=== PATIENT | female | born 1990 | race Caucasian/White ===

== ENCOUNTER 2016-11-08 21:47 | Emergency (ER) | payer BC ==
--- NOTE | 2016-11-08 21:51 | EDM.PDOC ---
ED HPI GENERAL MEDICAL PROBLEM - General Chief Complaint: General Stated Complaint: TOOTH PAIN Time Seen by Provider: 11/08/16 21:51 Source of Information: Reports: Patient - History of Present Illness INITIAL COMMENTS - FREE TEXT/NARRATIVE: HISTORY AND PHYSICAL: History of present illness: [] Patient is a rear molar right upper is scheduled for extraction on [address] Fernández Or ever area has become swollen and painful consistent with early dental abscess no pointing of the films for drainage No fever nausea vomiting chills sweats no distress Review of systems: As per history of present illness and below otherwise all systems reviewed and negative. Past medical history: As per history of present illness and as reviewed below otherwise noncontributory. Surgical history: As per history of present illness and as reviewed below otherwise noncontributory. Social history: No reported history of drug or alcohol abuse. Family history: As per history of present illness and as reviewed below otherwise noncontributory. Physical exam: HEENT: Atraumatic, normocephalic, pupils reactive, negative for conjunctival pallor or scleral icterus, mucous membranes moist, throat clear, neck supple, nontender, trachea midline. Poor dentition noted as per history of present illness Lungs: Clear to auscultation, breath sounds equal bilaterally, chest nontender. Heart: S1S2, regular, negative for clicks, rubs, or JVD. Abdomen: Soft, nondistended, nontender. Negative for masses or hepatosplenomegaly. Negative for costovertebral tenderness. Pelvis: Stable nontender. Genitourinary: Deferred. Rectal: Deferred. Extremities: Atraumatic, negative for cords or calf pain. Neurovascular unremarkable. Neuro: Awake, alert, oriented. Cranial nerves II through XII unremarkable. Cerebellum unremarkable. Motor and sensory unremarkable throughout. Exam nonfocal. Diagnostics: [] Therapeutics: [] 1 g Rocephin IM Augmentin 875 by mouth twice a day #20 no refill [place] #10 [facility] meds prescription Followup with dentist as soon as possible Impression: [] Dental abscess Dental caries Definitive disposition and diagnosis as appropriate pending reevaluation and review of above. 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) Other OB/BYN History: cstc off vaginal wall Musculoskeletal History: Reports: None Neurological History: Reports: None Psychiatric History: Reports: None Endocrine/Metabolic History: Reports: None Hematologic History: Reports: None Immunologic History: Reports: None Oncologic (Cancer) History: Reports: None Dermatologic History: Reports: None - Infectious Disease History Infectious Disease History: Reports: None - Past Surgical History Head Surgeries/Procedures: Reports: None HEENT Surgical History: Reports: None Cardiovascular Surgical History: Reports: None Female Surgical History: Reports: None Social & Family History - Family History Family Medical History: Noncontributory - Tobacco Use Smoking Status *Q: Never Smoker Second Hand Smoke Exposure: No - Caffeine Use Caffeine Use: Reports: Soda, Tea - Recreational Drug Use Recreational Drug Use: No ED ROS GENERAL - Review of Systems Review Of Systems: ROS reveals no pertinent complaints other than HPI. ED EXAM, GENERAL - Physical Exam Exam: See Below Course - Vital Signs Last Recorded V/S: Last Vital Signs Temp 36.3 C 11/08/16 21:52 Pulse 89 11/08/16 21:52 Resp 16 11/08/16 21:52 BP 131/81 11/08/16 21:52 Pulse Ox 97 11/08/16 21:52 - Orders/Labs/Meds Orders: Active Orders 24 hr Category Date Time Status cefTRIAXone [Rocephin] 1,000 mg Med 11/08/16 22:00 Ordered Lidocaine 1% [Xylocaine-MPF 1%] 4 ml IM ONETIME Departure - Departure Time of Disposition: 22:01 Disposition: Home, Self-Care 01 Condition: good Clinical Impression: Dental abscess - Discharge Information Forms: ED Department Discharge Additional Instructions: Medication as prescribed Return if symptoms persist or worsen Followup with Dr. Fernández as scheduled on the for extraction or speak with Dr. Fernández and possibly they may move your appointment forward if possible The following information is given to patients seen in the emergency department who are being discharged to home. This information is to outline your options for follow-up care. We provide all patients seen in our emergency department with a follow-up referral. The need for follow-up, as well as the timing and circumstances, are variable depending upon the specifics of your emergency department visit. If you don't have a primary care physician on staff, we will provide you with a referral. We always advise you to contact your personal physician following an emergency department visit to inform them of the circumstance of the visit and for follow-up with them and/or the need for any referrals to a consulting specialist. The emergency department will also refer you to a specialist when appropriate. This referral assures that you have the opportunity for follow-up care with a specialist. All of these measure are taken in an effort to provide you with optimal care, which includes your follow-up. Under all circumstances we always encourage you to contact your private physician who remains a resource for coordinating your care. When calling for follow-up care, please make the office aware that this follow-up is from your recent emergency room visit. If for any reason you are refused follow-up, please contact the [facility] emergency department at and asked to speak to the emergency department charge nurse. - My Orders Last 24 Hours: My Active Orders 11/08/16 22:00 cefTRIAXone [Rocephin] 1,000 mg Lidocaine 1% [Xylocaine-MPF 1%] 4 ml IM ONETIME - Assessment/Plan Last 24 Hours: My Active Orders 11/08/16 22:00 cefTRIAXone [Rocephin] 1,000 mg Lidocaine 1% [Xylocaine-MPF 1%] 4 ml IM ONETIME
[2016-11-08] MEDS ORDERED: cefTRIAXone 1,000 MG in Lidocaine 1% 4 ML IM ONE (22:00)
[2016-11-08 22:27] VITALS: BP 134/84
== END 2016-11-08 22:25 | disposition home or self-care (01) ==
LOC: MW.ED 21:47
DX: K04.7 Periapical abscess without sinus (principal); K02.9 Dental caries, unspecified; Z79.899 Other long term (current) drug therapy
CPT/HCPCS: 96372; 99282; J0696; 99283

== ENCOUNTER 2017-04-21 15:06 | Observation (INO) | payer BC ==
[2017-04-21] MEDS ORDERED: Sodium Chloride 0.9% 2.5 ML Syringe FLUSH PRN (15:08)
[2017-04-21] MEDS ORDERED: Sodium Chloride 0.9% 10 ML Syringe FLUSH PRN (15:08)
[2017-04-21] MEDS: Dextrose 5%-Lactated Ringers 1,000 ML IV SCH ×2 (15:34→22:49)
[2017-04-21] MEDS: Acetaminophen/oxyCODONE 325-5 MG Tab PO PRN ×2 (15:44→20:18)
[2017-04-21] MEDS ORDERED: cefTRIAXone 2 GM in Premix Bag 1 BAG IV ONE (16:00)
[2017-04-21] MEDS ORDERED: Metoclopramide 10 MG/2 ML SDV IVPUSH PRN (21:33)
[2017-04-22] MEDS: Dextrose 5%-Lactated Ringers 1,000 ML IV SCH (09:29)
--- NOTE | 2017-04-22 12:37 | US ---
EXAMINATION: Renal and bladder ultrasound HISTORY: Blood in urine COMPARISON: 04/20/2017 TECHNIQUE: Grayscale, color Doppler, and spectral Doppler images obtained of the kidneys and bladder. FINDINGS: The right kidney measures at least 10.8 cm and the left kidney measures at least 10.9 cm po le-to-pole without evidence of hydronephrosis. The renal cortical echotexture appears normal. There i s normal color Doppler flow bilaterally. No renal masses or perinephric fluid collections. The urinar y bladder appears normal. Bilateral urine jets noted. No post void residual. IMPRESSION: 1. Unremarkable renal ultrasound.
[2017-04-22] MEDS ORDERED: cefTRIAXone 1 GM in Premix Bag 1 BAG IV SCH (16:00)
[2017-04-22 16:02] VITALS: BP 94/45
--- NOTE | 2017-04-22 18:01 | PCM.PN ---
- General Info Date of Service: 04/22/17 Admission Dx/Problem (Free Text): 26 yo @ 21w2d admitted for left flank pain possible pyelonephritis vs renal stones. patient had sonogram done today that was unremarkable. Urine culture done in previous admission is negative - will repeat. WBC count from 14 to 10. Patient seen this morning she says she feels better. asked for pain medication at 8pm last night. She has recieved 1 dose of rocephin Functional Status: Reports: Pain Controlled, Tolerating Diet, Ambulating - Review of Systems General: Reports: No Symptoms HEENT: Reports: No Symptoms Pulmonary: Reports: No Symptoms Cardiovascular: Reports: No Symptoms Gastrointestinal: Reports: No Symptoms - Patient Data Vitals - Most Recent: Last Vital Signs Temp 36.1 C 04/22/17 16:01 Pulse 79 04/22/17 16:01 Resp 22 H 04/22/17 16:01 BP 94/45 L 04/22/17 16:01 Pulse Ox 96 04/22/17 16:01 Weight - Most Recent: 83.37 kg I&O - Last 24 Hours: Intake & Output 04/22/17 04/22/17 04/22/17 06:59 14:59 22:59 Intake Total 1100 386 Output Total 1500 1650 Balance -400 -1264 Med Orders - Current: Current Medications Ceftriaxone Sodium/Dextrose 1 (gm/ Premix) 50 mls @ 100 mls/hr IV Q24H DARRYN Last Admin: 04/22/17 15:32 Dose: 100 mls/hr Dextrose/Lactated Ringer's (Dextrose 5%-Lactated Ringers) 1,000 mls @ 150 mls/ hr IV ASDIRECTED DARRYN Last Admin: 04/22/17 09:29 Dose: 150 mls/hr Metoclopramide HCl (Reglan) 10 mg IVPUSH Q6H PRN PRN Reason: Nausea Last Admin: 04/21/17 23:03 Dose: 10 mg Oxycodone/Acetaminophen (Percocet 325-5 Mg) 2 tab PO Q4H PRN PRN Reason: pain Last Admin: 04/21/17 20:18 Dose: 2 tab Sodium Chloride (Saline Flush) 10 ml FLUSH ASDIRECTED PRN PRN Reason: Keep Vein Open Sodium Chloride (Saline Flush) 2.5 ml FLUSH ASDIRECTED PRN PRN Reason: Keep Vein Open Discontinued Medications Ceftriaxone Sodium/Dextrose 2 (gm/ Premix) 50 mls @ 100 mls/hr IV ONETIME ONE Stop: 04/21/17 16:29 Last Admin: 04/21/17 15:35 Dose: 100 mls/hr - Exam General: Alert HEENT: Pupils Equal Lungs: Clear to Auscultation Cardiovascular: Regular Rate, Regular Rhythm GI/Abdominal Exam: Normal Bowel Sounds Back Exam: Normal Inspection Extremities: Normal Inspection - Problem List & Annotations (1) Pyelonephritis SNOMED Code(s): 81890969 Code(s): N12 - TUBULO-INTERSTITIAL NEPHRITIS, NOT SPCF ACUTE OR CHRONIC Status: Acute Current Visit: Yes - Problem List Review Problem List Initiated/Reviewed/Updated: Yes - My Orders Last 24 Hours: My Active Orders 04/21/17 21:33 Metoclopramide [Reglan] 10 mg IVPUSH Q6H PRN 04/22/17 09:37 CULTURE URINE [RM] Routine 04/22/17 16:00 cefTRIAXone [Rocephin in Dextrose,Iso-Osm 1 GM/50 ML] 1 gm Premix Bag 1 bag IV Q24H - Assessment Assessment:: 26 yo @ 21w2d with left flank pain r/o pyelonephritis vs left kidney stone - Plan Plan:: Possible discharge home today if pain controlled Continue IV hydration Continue antibiotics
== END 2017-04-22 19:30 | disposition home or self-care (01) ==
LOC: MW.MS 15:06
PROVIDERS: ADMIT Obstetrics & Gynecology; ATTEND Obstetrics & Gynecology
DX: R10.9 Unspecified abdominal pain (principal)
CPT/HCPCS: 36415; 76775; 85027; 86850; 86900; 86901; 87086; A9270; J0696; J2765; J7042; 96361; 96365; 96375; G0378

== ENCOUNTER 2017-08-25 06:49 | Inpatient (IN) | payer BC ==
[2017-08-25] MEDS ORDERED: Sodium Chloride 0.9% 10 ML Syringe FLUSH PRN (07:46)
[2017-08-25] MEDS ORDERED: Sodium Chloride 0.9% 2.5 ML Syringe FLUSH PRN (07:46)
[2017-08-25] MEDS ORDERED: ceFAZolin 2 GM in Premix Bag 1 BAG IV ONE (07:46)
[2017-08-25] MEDS ORDERED: Citric Acid/Sodium Citrate Solution 30 ML Cup PO SCH (08:00)
[2017-08-25] MEDS ORDERED: Lactated Ringers 1,000 ML IV SCH ×2 (08:00→10:00)
[2017-08-25] MEDS ORDERED: Oxytocin/0.9 % Sodium Chloride 30 UNIT/500 ML BAG IV SCH (08:00)
[2017-08-25] MEDS ORDERED: Ondansetron 4 MG/2 ML SDV ONE (08:30)
[2017-08-25] MEDS ORDERED: fentaNYL 100 MCG/2 ML SDV ONE (08:35)
[2017-08-25] MEDS ORDERED: Oxytocin 10 Units/1 ML SDV ONE (08:36)
[2017-08-25] MEDS ORDERED: Midazolam 1 MG/ML 2 ML SDV ONE (08:38)
--- NOTE | 2017-08-25 08:53 | PCM.PREANE ---
Preanesthetic Assessment - Anesthesia/Transfusion/Family Hx Anesthesia History: Prior Anesthesia Without Reaction Transfusion History: No Prior Transfusion(s) - Review of Systems General: No Symptoms Pulmonary: No Symptoms Cardiovascular: No Symptoms Gastrointestinal: No Symptoms Neurological: No Symptoms Other: Reports: None - Physical Assessment NPO Status Date: 08/25/17 NPO Status Time: 06:00 Height: 5 ft 1 in Weight: 88.451 kg ASA Class: 2E Mental Status: Alert & Oriented x3 Airway Class: Mallampati = 2 Dentition: Reports: Normal Dentition ROM/Head Extension: Full Lungs: Clear to Auscultation, Normal Respiratory Effort Cardiovascular: Regular Rate, Regular Rhythm - Lab Values: Laboratory Last Values WBC 13.84 K/uL (4.0-11.0) H 08/25/17 08:08 RBC 4.68 M/uL (4.30-5.90) 08/25/17 08:08 Hgb 13.8 g/dL (12.0-16.0) 08/25/17 08:08 Hct 41.3 % (36.0-46.0) 08/25/17 08:08 MCV 88.2 fL (80.0-98.0) 08/25/17 08:08 MCH 29.5 pg (27.0-32.0) 08/25/17 08:08 MCHC 33.4 g/dL (31.0-37.0) 08/25/17 08:08 RDW Std Deviation 45.6 fl (28.0-62.0) 08/25/17 08:08 RDW Coeff of Pardeep 14 % (11.0-15.0) 08/25/17 08:08 Plt Count 225 K/uL (150-400) 08/25/17 08:08 MPV 10.90 fL (7.40-12.00) 08/25/17 08:08 Nucleated RBC % 0.0 /100WBC 08/25/17 08:08 Nucleated RBCs # 0 K/uL 08/25/17 08:08 Membrane Rupture POSITIVE 08/25/17 07:03 Blood Type O POSITIVE 08/25/17 08:08 Antibody Screen NEGATIVE 08/25/17 08:08 - Allergies Allergies/Adverse Reactions: Allergies Allergy/AdvReac Type Severity Reaction Status Date / Time No Known Allergies Allergy Verified 11/08/16 21:52 - Acknowledgements Anesthesia Type Planned: Spinal (with duramorph) Pt an Appropriate Candidate for the Planned Anesthesia: Yes Alternatives and Risks of Anesthesia Discussed w Pt/Guardian: Yes Pt/Guardian Understands and Agrees with Anesthesia Plan: Yes PreAnesthesia Questionnaire - Past Health History Medical/Surgical History: Denies Medical/Surgical History HEENT History: Reports: None Cardiovascular History: Reports: None Respiratory History: Reports: None Gastrointestinal History: Reports: GERD Genitourinary History: Reports: Other (See Below) Other Genitourinary History: cystc vaginal wall removed 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: , Other (See Below) : 1 Para: 0 LMP (Approximate): Other OB/BYN History: cstc off vaginal wall Musculoskeletal History: Reports: None Neurological History: Reports: None Psychiatric History: Reports: None Endocrine/Metabolic History: Reports: None Hematologic History: Reports: None Immunologic History: Reports: None Oncologic (Cancer) History: Reports: None Dermatologic History: Reports: None - Infectious Disease History Infectious Disease History: Reports: Chicken Pox, Herpes - Past Surgical History Head Surgeries/Procedures: Reports: None HEENT Surgical History: Reports: None Cardiovascular Surgical History: Reports: None Female Surgical History: Reports: None - SUBSTANCE USE Smoking Status *Q: Never Smoker Second Hand Smoke Exposure: No Recreational Drug Use History: No - HOME MEDS Home Medications: Home Meds Acyclovir 800 mg PO TID PRN 04/21/17 [History] Cyanocobalamin/FA/Pyridoxine [B Complex-Folic Acid] 1 each PO ASDIRECTED [History] Doxylamine Succinate [Unisom] 25 mg PO BEDTIME 04/21/17 [History] Wle884/FA/Omega3/Dha/Fish Oil [ Gummies] 1 each PO ASDIRECTED 04/21/17 [ History] oxyCODONE HCl/Acetaminophen [Percocet 5-325 mg Tablet] 2 tab PO Q4HR PRN #10 tablet 04/22/17 [Rx] valACYclovir [Valtrex] 500 mg PO BID PRN 04/22/17 [History] - CURRENT (IN HOUSE) MEDS Current Meds: Current Medications Citric Acid/Sodium Citrate (Bicitra Solution) 30 ml PO .ONCE DARRYN Oxytocin/Sodium Chloride (Oxytocin 30 Unit/500 Ml-Ns) 30 unit in 500 mls @ 250 mls/hr IV TITRATE DARRYN Lactated Ringer's (Ringers, Lactated) 1,000 mls @ 500 mls/hr IV .BOLUS DARRYN Last Admin: 08/25/17 08:21 Dose: 500 mls/hr Sodium Chloride (Saline Flush) 10 ml FLUSH ASDIRECTED PRN PRN Reason: Keep Vein Open Sodium Chloride (Saline Flush) 2.5 ml FLUSH ASDIRECTED PRN PRN Reason: Keep Vein Open Discontinued Medications Fentanyl (Sublimaze) Confirm Administered Dose 100 mcg .ROUTE .STK-MED ONE Stop: 08/25/17 08:36 Cefazolin Sodium/Dextrose 2 gm (/ Premix) 50 mls @ 100 mls/hr IV ONETIME ONE Stop: 08/25/17 08:15 Midazolam HCl (Versed 1 Mg/Ml) Confirm Administered Dose 2 mg .ROUTE .STK-MED ONE Stop: 08/25/17 08:39 Ondansetron HCl (Zofran) Confirm Administered Dose 4 mg .ROUTE .STK-MED ONE Stop: 08/25/17 08:31 Oxytocin (Pitocin) Confirm Administered Dose 20 unit .ROUTE .STK-MED ONE Stop: 08/25/17 08:37
[2017-08-25] MEDS ORDERED: Acetaminophen/oxyCODONE 325-5 MG Tab PO PRN ×2 (08:54→09:50)
[2017-08-25] MEDS ORDERED: fentaNYL 100 MCG/2 ML SDV IVPUSH PRN (08:54)
[2017-08-25] MEDS ORDERED: Nalbuphine 10 MG/1 ML Vial IVPUSH PRN (08:54)
[2017-08-25] MEDS ORDERED: Morphine PF 1 MG/ML Amp ONE (08:54)
[2017-08-25] MEDS ORDERED: Ondansetron 4 MG/2 ML SDV IV PRN (09:50)
[2017-08-25] MEDS ORDERED: Bisacodyl 10 MG Supp RECTAL PRN (09:50)
[2017-08-25] MEDS ORDERED: Lanolin 100% Cream 7 GM Tube TOP PRN (09:50)
[2017-08-25] MEDS: Ketorolac 30 MG/ML SDV IVPUSH SCH ×3 (09:58→21:57)
[2017-08-25] MEDS ORDERED: Measles, Mumps & Rubella Vaccine 0.5 ML SDV SUBCUT ONE (10:02)
--- NOTE | 2017-08-25 10:25 | PCM.OPNOTE ---
- General Post-Op/Procedure Note Date of Surgery/Procedure: 08/25/17 Operative Procedure(s): section Findings: Male infant, Wt 3150grams, Apgars 6 and 8. Normal uterus, ovaries and tubes. Grossly normal placenta with 3 vessel cord. Pre Op Diagnosis: 1) 39.2 weeks. 2) Spontaneous active labor with SROM. 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
[2017-08-25] MEDS: diphenhydrAMINE 50 MG/ML SDV IVPUSH PRN ×2 (10:40→17:03)
--- NOTE | 2017-08-25 11:03 | PCM.POSTAN ---
POST ANESTHESIA ASSESSMENT - MENTAL STATUS Mental Status: Alert, Oriented - RESPIRATORY Respiratory Status: Respiratory Rate WNL, Airway Patent, O2 Saturation Stable - CARDIOVASCULAR CV Status: Pulse Rate WNL, Blood Pressure Stable - GASTROINTESTINAL GI Status: No Symptoms - POST OP HYDRATION Hydration Status: Adequate & Stable
--- NOTE | 2017-08-25 13:35 | PCM48HPAN ---
Post Anesthesia Note - EVALUATION WITHIN 48HRS OF ANESTHETIC Vital Signs in Normal Range: Yes Patient Participated in Evaluation: Yes Respiratory Function Stable: Yes Airway Patent: Yes Cardiovascular Function Stable: Yes Hydration Status Stable: Yes Pain Control Satisfactory: Yes Nausea and Vomiting Control Satisfactory: Yes Mental Status Recovered: Yes Resp Rate: 16 - COMMENTS/OBSERVATIONS Free Text/Narrative:: Pt states she has used both benadryl and nubain for pruritis and states neither has helped. VSS. No anesthesia complications.
[2017-08-25] MEDS: Docusate Sodium 100 MG Cap PO SCH (21:57)
[2017-08-26] MEDS: Ketorolac 30 MG/ML SDV IVPUSH SCH ×2 (04:11→10:25)
--- NOTE | 2017-08-26 08:17 | PCM.PNPP ---
<Renée Mcneil - Last Filed: 08/26/17 08:14> - General Info Date of Service: 08/26/17 Functional Status: Reports: Pain Controlled, Tolerating Diet, Ambulating, Urinating - Review of Systems General: Denies: Fever, Weakness, Fatigue Pulmonary: Denies: Shortness of Breath, Pleuritic Chest Pain, Cough Cardiovascular: Denies: Chest Pain, Palpitations, Dyspnea on Exertion Gastrointestinal: Denies: Abdominal Pain Genitourinary: Denies: Dysuria - General Info Date of Service: 08/26/17 - Patient Data Vital Signs - Most Recent: Last Vital Signs Temp 36.7 C 08/26/17 04:00 Pulse 86 08/26/17 04:00 Resp 16 08/26/17 08:00 BP 92/53 L 08/26/17 04:00 Pulse Ox 99 08/26/17 08:00 Weight - Most Recent: 88.451 kg I&O - Last 24 Hours: Intake & Output 08/25/17 08/26/17 08/26/17 22:59 06:59 14:59 Output Total 1050 300 Balance -1050 -300 Lab Results - Last 24 Hours: Laboratory Results - last 24 hr 08/25/17 08/25/17 08/26/17 Range/Units 08:08 08:08 05:57 WBC 13.84 H (4.0-11.0) K/uL RBC 4.68 (4.30-5.90) M/uL Hgb 13.8 10.7 L (12.0-16.0) g/dL Hct 41.3 32.8 L (36.0-46.0) % MCV 88.2 (80.0-98.0) fL MCH 29.5 (27.0-32.0) pg MCHC 33.4 (31.0-37.0) g/dL RDW Std Deviation 45.6 (28.0-62.0) fl RDW Coeff of Pardeep 14 (11.0-15.0) % Plt Count 225 (150-400) K/uL MPV 10.90 (7.40-12.00) fL Nucleated RBC % 0.0 /100WBC Nucleated RBCs # 0 K/uL Blood Type O POSITIVE Antibody Screen NEGATIVE Med Orders - Current: Current Medications Bisacodyl (Dulcolax) 10 mg RECTAL .ONCE PRN PRN Reason: Constipation Diphenhydramine HCl (Benadryl) 25 mg IVPUSH Q6H PRN PRN Reason: Itching or Nausea Last Admin: 08/25/17 17:03 Dose: 25 mg Docusate Sodium (Colace) 100 mg PO BID [facility] Last Admin: 08/25/17 21:57 Dose: 100 mg Emollient Ointment (Lansinoh Hpa) 0 gm TOP ASDIRECTED PRN PRN Reason: Sore Nipples Fentanyl (Sublimaze) 50 mcg IVPUSH Q5M PRN PRN Reason: Pain (severe 7-10) Stop: 08/26/17 08:54 Lactated Ringer's (Ringers, Lactated) 1,000 mls @ 125 mls/hr IV ASDIRECTED [facility] Ibuprofen (Motrin) 800 mg PO Q8H PRN PRN Reason: mild pain or fever Ketorolac Tromethamine (Toradol) 30 mg IVPUSH Q6H [facility] Stop: 08/26/17 10:01 Last Admin: 08/26/17 04:11 Dose: 30 mg Nalbuphine HCl (Nubain) 2.5 mg IVPUSH Q3H PRN PRN Reason: Pruritis Stop: 08/26/17 08:54 Last Admin: 08/25/17 11:44 Dose: 2.5 mg Ondansetron HCl (Zofran) 4 mg IV Q4H PRN PRN Reason: Nausea/Vomiting Oxycodone/Acetaminophen (Percocet 325-5 Mg) 1 tab PO ONETIME PRN PRN Reason: Pain (moderate 4-6) Oxycodone/Acetaminophen (Percocet 325-5 Mg) 1 tab PO Q4H PRN PRN Reason: Pain (moderate 4-6) Oxycodone/Acetaminophen (Percocet 325-5 Mg) 2 tab PO Q4H PRN PRN Reason: Pain (moderate 4-6) Discontinued Medications Citric Acid/Sodium Citrate (Bicitra Solution) 30 ml PO .ONCE [facility] Fentanyl (Sublimaze) Confirm Administered Dose 100 mcg .ROUTE .STK-MED ONE Stop: 08/25/17 08:36 Cefazolin Sodium/Dextrose 2 gm (/ Premix) 50 mls @ 100 mls/hr IV ONETIME ONE Stop: 08/25/17 08:15 Last Admin: 08/25/17 19:54 Dose: Not Given Oxytocin/Sodium Chloride (Oxytocin 30 Unit/500 Ml-Ns) 30 unit in 500 mls @ 250 mls/hr IV TITRATE [facility] Lactated Ringer's (Ringers, Lactated) 1,000 mls @ 500 mls/hr IV .BOLUS D[facility] Last Admin: 08/25/17 08:21 Dose: 500 mls/hr Measles/Mumps/Rubella Vaccine Live (M-M-R Ii Vaccine) 0.5 ml SUBCUT .ONCE ONE Stop: 08/25/17 10:03 Midazolam HCl (Versed 1 Mg/Ml) Confirm Administered Dose 2 mg .ROUTE .STK-MED ONE Stop: 08/25/17 08:39 Morphine Sulfate (Duramorph Pf) Confirm Administered Dose 1 mg .ROUTE .STK-MED ONE Stop: 08/25/17 08:55 Ondansetron HCl (Zofran) Confirm Administered Dose 4 mg .ROUTE .STK-MED ONE Stop: 08/25/17 08:31 Oxytocin (Pitocin) Confirm Administered Dose 20 unit .ROUTE .STK-MED ONE Stop: 08/25/17 08:37 Sodium Chloride (Saline Flush) 10 ml FLUSH ASDIRECTED PRN PRN Reason: Keep Vein Open Sodium Chloride (Saline Flush) 2.5 ml FLUSH ASDIRECTED PRN PRN Reason: Keep Vein Open - Interaction Infant Disposition, : [place] in Room with Family Infant Feeding: Attempted ; Nursed Fair/Poor, Difficulty with Latch -on Support Person: Significant Other - Recovery Exam Fundal Tone: Firm Fundal Level: At Umbilicus Fundal Placement: Midline Lochia Amount: Scant Lochia Color: Rubra/Red Perineum Description: Intact, Minimal Bruising/Swelling Episiotomy/Laceration: None Bladder Status: Indwelling Catheter in Place Urinary Elimination: Indwelling Catheter - Exam General: Alert, Oriented Neck: Supple Lungs: Clear to Auscultation Cardiovascular: Regular Rate, Regular Rhythm GI/Abdominal Exam: Normal Bowel Sounds, Soft Extremities: Normal Inspection, Normal Range of Motion, Pedal Edema (trace) - Problem List & Annotations (1) delivery delivered SNOMED Code(s): 875582368 Code(s): O82 - ENCOUNTER FOR DELIVERY WITHOUT INDICATION Status: Acute Current Visit: Yes - Problem List Review Problem List Initiated/Reviewed/Updated: Yes - Assessment Assessment:: POD #1 s/p PLTCS. Minimal pain and lochia. Work on breast feeding today. Encouraged patient to ambulate halls. Anticipate discharge home tomorrow. - Plan Plan:: Continue routine post-op cares. Anticipate discharge home tomorrow. <Mehnaz Thomas - Last Filed: 08/26/17 08:19> - Patient Data Vital Signs - Most Recent: Last Vital Signs Temp 36.7 C 08/26/17 04:00 Pulse 86 08/26/17 04:00 Resp 16 08/26/17 08:00 BP 92/53 L 08/26/17 04:00 Pulse Ox 99 08/26/17 08:00 I&O - Last 24 Hours: Intake & Output 08/25/17 08/26/17 08/26/17 22:59 06:59 14:59 Output Total 1050 300 Balance -1050 -300 Lab Results - Last 24 Hours: Laboratory Results - last 24 hr 08/25/17 08/25/17 08/26/17 Range/Units 08:08 08:08 05:57 WBC 13.84 H (4.0-11.0) K/uL RBC 4.68 (4.30-5.90) M/uL Hgb 13.8 10.7 L (12.0-16.0) g/dL Hct 41.3 32.8 L (36.0-46.0) % MCV 88.2 (80.0-98.0) fL MCH 29.5 (27.0-32.0) pg MCHC 33.4 (31.0-37.0) g/dL RDW Std Deviation 45.6 (28.0-62.0) fl RDW Coeff of Pardeep 14 (11.0-15.0) % Plt Count 225 (150-400) K/uL MPV 10.90 (7.40-12.00) fL Nucleated RBC % 0.0 /100WBC Nucleated RBCs # 0 K/uL Blood Type O POSITIVE Antibody Screen NEGATIVE Med Orders - Current: Current Medications Bisacodyl (Dulcolax) 10 mg RECTAL .ONCE PRN PRN Reason: Constipation Diphenhydramine HCl (Benadryl) 25 mg IVPUSH Q6H PRN PRN Reason: Itching or Nausea Last Admin: 08/25/17 17:03 Dose: 25 mg Docusate Sodium (Colace) 100 mg PO BID [facility] Last Admin: 08/25/17 21:57 Dose: 100 mg Emollient Ointment (Lansinoh Hpa) 0 gm TOP ASDIRECTED PRN PRN Reason: Sore Nipples Fentanyl (Sublimaze) 50 mcg IVPUSH Q5M PRN PRN Reason: Pain (severe 7-10) Stop: 08/26/17 08:54 Lactated Ringer's (Ringers, Lactated) 1,000 mls @ 125 mls/hr IV ASDIRECTED [facility] Ibuprofen (Motrin) 800 mg PO Q8H PRN PRN Reason: mild pain or fever Ketorolac Tromethamine (Toradol) 30 mg IVPUSH Q6H [facility] Stop: 08/26/17 10:01 Last Admin: 08/26/17 04:11 Dose: 30 mg Nalbuphine HCl (Nubain) 2.5 mg IVPUSH Q3H PRN PRN Reason: Pruritis Stop: 08/26/17 08:54 Last Admin: 08/25/17 11:44 Dose: 2.5 mg Ondansetron HCl (Zofran) 4 mg IV Q4H PRN PRN Reason: Nausea/Vomiting Oxycodone/Acetaminophen (Percocet 325-5 Mg) 1 tab PO ONETIME PRN PRN Reason: Pain (moderate 4-6) Oxycodone/Acetaminophen (Percocet 325-5 Mg) 1 tab PO Q4H PRN PRN Reason: Pain (moderate 4-6) Oxycodone/Acetaminophen (Percocet 325-5 Mg) 2 tab PO Q4H PRN PRN Reason: Pain (moderate 4-6) Discontinued Medications Citric Acid/Sodium Citrate (Bicitra Solution) 30 ml PO .ONCE [facility] Fentanyl (Sublimaze) Confirm Administered Dose 100 mcg .ROUTE .STK-MED ONE Stop: 08/25/17 08:36 Cefazolin Sodium/Dextrose 2 gm (/ Premix) 50 mls @ 100 mls/hr IV ONETIME ONE Stop: 08/25/17 08:15 Last Admin: 08/25/17 19:54 Dose: Not Given Oxytocin/Sodium Chloride (Oxytocin 30 Unit/500 Ml-Ns) 30 unit in 500 mls @ 250 mls/hr IV TITRATE [facility] Lactated Ringer's (Ringers, Lactated) 1,000 mls @ 500 mls/hr IV .BOLUS DARRYN Last Admin: 08/25/17 08:21 Dose: 500 mls/hr Measles/Mumps/Rubella Vaccine Live (M-M-R Ii Vaccine) 0.5 ml SUBCUT .ONCE ONE Stop: 08/25/17 10:03 Midazolam HCl (Versed 1 Mg/Ml) Confirm Administered Dose 2 mg .ROUTE .STK-MED ONE Stop: 08/25/17 08:39 Morphine Sulfate (Duramorph Pf) Confirm Administered Dose 1 mg .ROUTE .STK-MED ONE Stop: 08/25/17 08:55 Ondansetron HCl (Zofran) Confirm Administered Dose 4 mg .ROUTE .STK-MED ONE Stop: 08/25/17 08:31 Oxytocin (Pitocin) Confirm Administered Dose 20 unit .ROUTE .STK-MED ONE Stop: 08/25/17 08:37 Sodium Chloride (Saline Flush) 10 ml FLUSH ASDIRECTED PRN PRN Reason: Keep Vein Open Sodium Chloride (Saline Flush) 2.5 ml FLUSH ASDIRECTED PRN PRN Reason: Keep Vein Open - Plan Plan:: Patient seen and examined--agree with plan
[2017-08-26] MEDS: Docusate Sodium 100 MG Cap PO SCH (10:24)
--- NOTE | 2017-08-26 12:51 | OR ---
SURGEON: Ramandeep Vega MD DATE OF PROCEDURE: 08/25/2017 PREOPERATIVE DIAGNOSES: 1. Term intrauterine at 39 weeks and 2 days. 2. Spontaneous active labor with SROM . 3. History of HSV-2 4. Elective section POSTOPERATIVE DIAGNOSES: 1. Term intrauterine at 39 weeks and 2 days. 2. Spontaneous active labor with SROM. 3. History of HSV-2 4. Elective section. 5. Delivered. PROCEDURE: Primary low-transverse section via Pfannenstiel. ANESTHESIA: Spinal. ESTIMATED BLOOD LOSS: 600 mL. IV FLUIDS: 1500 mL of crystalloid. URINE OUTPUT: 120 mL clear at the end of the procedure. COMPLICATIONS: None. CONDITION: Stable to recovery room. FINDINGS: Male in cephalic presentation, delivered in right occipital transverse position. Clear amniotic fluid. No nuchal cord. Weight 3150 g, scores 6 and 8 at 1 and 5 minutes respectively. Grossly normal uterus, tubes, and ovaries. Grossly normal placenta with 3-vessel cord. INDICATION: The patient is a 27-year-old primigravida who presented labor and delivery this morning at 39 weeks and 2 days with a history of leakage of clear fluid since 5:30 a.m. On admission, she was confirmed to be grossly ruptured and was 6 cm dilated. 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 She reports that she has never had an outbreak but given the fact that she is unwilling to accept the small risk of a possible HSV-2 infection in the she had opted for an elective section. On examination with bright light, no herpetic lesions were seen on the external genitalia or in the vagina and she was 8 cm, 100% effaced, station +1 on VE. Category 1 tracing, heart rate of 130s, jer every 2 to 3 minutes. The patient is adamant to progress with section. Procedure was explained and consent obtained. PROCEDURE IN DETAIL: The patient was taken to the operating room, where spinal anesthesia was performed and found to be adequate.She was then prepped and draped in a normal sterile fashion in a dorsosupine position with a leftward tilt. Ancef 2 g was given. Appropriate time-out was held. SCDs were in place. Pfannenstiel skin incision was then made with the scalpel and carried through to the underlying layer of fascia with the Bovie.The fascia was scored in the midline and extended laterally with the Bovie. The superior aspect of the fascial incision was grasped with Robe clamps, elevated and the rectus muscles were dissected off. Attention turned to the inferior aspect of the incision, which in similar fashion was grasped, tented up with Robe clamps, and the rectus muscle was dissected off with the Armas scissors. The rectus muscle was then in the midline until the parietal peritoneum was reached and the parietal peritoneum was entered bluntly and was then extended laterally by stretching. A self-retaining Abhijit - O was then placed into the abdominal cavity.The vesicouterine peritoneum was identified, picked up , entered sharply with the Metzenbaum scissors and a bladder flap was created digitally. The lower uterine segment was then incised transversely and the incision was extended upwards and downwards bluntly. The infant's head was then delivered out of the pelvis and was delivered atraumatically followed by the shoulders and the rest of the baby. The cord was double clamped and cut and the was handed over to the awaiting sign fabricator, Dr. Khoury. Cord blood and gas samples were obtained. The placenta was delivered spontaneously by massage. The uterus was cleared of all clot and debris and the uterine incision was then closed in 2 layers using 0 Vicryl sutures, the first layer was closed in a running locked fashion and a second imbricating layer was performed to obtain excellent hemostasis. One figure-of- eight hemostatic stitch was placed in the lower uterus segment obtained better hemostasis. The paracolic gutters were then cleared of all clots and debris and copious irrigation was performed. The Abhijit -O was then removed from the abdominal cavity. The edges of the parietal peritoneum were identified and closed with 2-0 Vicryl suture in a running fashion.The muscle was reapproximated with interrupted stitches of 2-0 Vicryl. The subfascial layer was found to be hemostatic. The fascia was then reapproximated with 0 Vicryl in a running fashion. The subcuticular layer was made hemostatic with electrocautery. The subcuticular layer was then approximated with 3-0 plain suture. The skin was closed using subcuticular stitches of 4-0 Monocryl suture. The patient tolerated the procedure well. Sponge, instrument, and needle counts were correct at the end of the procedure. The patient was taken to the recovery in a stable condition. The baby was taken to the nursery in a stable condition. GAYLA / JULIANE /[id number] MTDD
[2017-08-26] MEDS: Ibuprofen 800 MG Tab PO PRN (19:29)
[2017-08-26] MEDS: Acetaminophen/oxyCODONE 325-5 MG Tab PO PRN (19:30)
[2017-08-27] MEDS: Acetaminophen/oxyCODONE 325-5 MG Tab PO PRN ×2 (00:11→03:56)
[2017-08-27] MEDS: Docusate Sodium 100 MG Cap PO SCH ×2 (03:56→09:03)
[2017-08-27] MEDS: Ibuprofen 800 MG Tab PO PRN (03:57)
[2017-08-27 08:22] VITALS: BP 117/80
--- NOTE | 2017-08-27 09:38 | PCM.PNPP ---
- General Info Date of Service: 08/27/17 Subjective Update: Patient is feeling well--she is ambulating, voiding, lochia is scant. Notes her pain is well controlled. She would like to go home today - Review of Systems General: Denies: Fever Pulmonary: Denies: Shortness of Breath Cardiovascular: Denies: Chest Pain, Palpitations, Lightheadedness Gastrointestinal: Reports: Flatus. Denies: Nausea, Vomiting Genitourinary: Denies: Flank Pain Neurological: Denies: Headache Psychiatric: Reports: No Symptoms - General Info Date of Service: 08/27/17 - Patient Data Vital Signs - Most Recent: Last Vital Signs Temp 36.7 C 08/27/17 08:21 Pulse 117 H 08/27/17 04:00 Resp 17 08/27/17 08:21 BP 117/80 08/27/17 08:21 Pulse Ox 99 08/27/17 08:21 Weight - Most Recent: 88.451 kg Med Orders - Current: Current Medications Bisacodyl (Dulcolax) 10 mg RECTAL .ONCE PRN PRN Reason: Constipation Last Admin: 08/26/17 20:46 Dose: 10 mg Diphenhydramine HCl (Benadryl) 25 mg IVPUSH Q6H PRN PRN Reason: Itching or Nausea Last Admin: 08/25/17 17:03 Dose: 25 mg Docusate Sodium (Colace) 100 mg PO BID [facility] Last Admin: 08/27/17 09:03 Dose: 100 mg Emollient Ointment (Lansinoh Hpa) 0 gm TOP ASDIRECTED PRN PRN Reason: Sore Nipples Lactated Ringer's (Ringers, Lactated) 1,000 mls @ 125 mls/hr IV ASDIRECTED [facility] Ibuprofen (Motrin) 800 mg PO Q8H PRN PRN Reason: mild pain or fever Last Admin: 08/27/17 03:57 Dose: 800 mg Ondansetron HCl (Zofran) 4 mg IV Q4H PRN PRN Reason: Nausea/Vomiting Oxycodone/Acetaminophen (Percocet 325-5 Mg) 1 tab PO ONETIME PRN PRN Reason: Pain (moderate 4-6) Last Admin: 08/27/17 09:03 Dose: 1 tab Oxycodone/Acetaminophen (Percocet 325-5 Mg) 1 tab PO Q4H PRN PRN Reason: Pain (moderate 4-6) Last Admin: 08/27/17 03:56 Dose: 1 tab Oxycodone/Acetaminophen (Percocet 325-5 Mg) 2 tab PO Q4H PRN PRN Reason: Pain (moderate 4-6) Discontinued Medications Citric Acid/Sodium Citrate (Bicitra Solution) 30 ml PO .ONCE [facility] Fentanyl (Sublimaze) Confirm Administered Dose 100 mcg .ROUTE .STK-MED ONE Stop: 08/25/17 08:36 Fentanyl (Sublimaze) 50 mcg IVPUSH Q5M PRN PRN Reason: Pain (severe 7-10) Stop: 08/26/17 08:54 Cefazolin Sodium/Dextrose 2 gm (/ Premix) 50 mls @ 100 mls/hr IV ONETIME ONE Stop: 08/25/17 08:15 Last Admin: 08/25/17 19:54 Dose: Not Given Oxytocin/Sodium Chloride (Oxytocin 30 Unit/500 Ml-Ns) 30 unit in 500 mls @ 250 mls/hr IV TITRATE [facility] Lactated Ringer's (Ringers, Lactated) 1,000 mls @ 500 mls/hr IV .BOLUS DARRYN Last Admin: 08/25/17 08:21 Dose: 500 mls/hr Ketorolac Tromethamine (Toradol) 30 mg IVPUSH Q6H [facility] Stop: 08/26/17 10:01 Last Admin: 08/26/17 10:25 Dose: 30 mg Measles/Mumps/Rubella Vaccine Live (M-M-R Ii Vaccine) 0.5 ml SUBCUT .ONCE ONE Stop: 08/25/17 10:03 Midazolam HCl (Versed 1 Mg/Ml) Confirm Administered Dose 2 mg .ROUTE .STK-MED ONE Stop: 08/25/17 08:39 Morphine Sulfate (Duramorph Pf) Confirm Administered Dose 1 mg .ROUTE .STK-MED ONE Stop: 08/25/17 08:55 Nalbuphine HCl (Nubain) 2.5 mg IVPUSH Q3H PRN PRN Reason: Pruritis Stop: 08/26/17 08:54 Last Admin: 08/25/17 11:44 Dose: 2.5 mg Ondansetron HCl (Zofran) Confirm Administered Dose 4 mg .ROUTE .STK-MED ONE Stop: 08/25/17 08:31 Oxytocin (Pitocin) Confirm Administered Dose 20 unit .ROUTE .STK-MED ONE Stop: 08/25/17 08:37 Sodium Chloride (Saline Flush) 10 ml FLUSH ASDIRECTED PRN PRN Reason: Keep Vein Open Sodium Chloride (Saline Flush) 2.5 ml FLUSH ASDIRECTED PRN PRN Reason: Keep Vein Open - Infant Interaction Infant Disposition, : in Room with Family Infant Feeding: Attempted ; Nursed Fair/Poor, Difficulty with Latch -on Support Person: Significant Other - Recovery Exam Fundal Tone: Firm Fundal Level: 1 Fingerbreadths Below Umbilicus Fundal Placement: Midline Lochia Amount: Small Lochia Color: Rubra/Red Perineum Description: Intact, Minimal Bruising/Swelling Episiotomy/Laceration: Approximated Bladder Status: Voiding Urinary Elimination: Voided - Exam General: Alert, Oriented Lungs: Normal Respiratory Effort Cardiovascular: Regular Rate, Regular Rhythm GI/Abdominal Exam: Normal Bowel Sounds, Soft Extremities: Pedal Edema (trace). No: Jeffy's Sign Skin: Warm, Dry, Intact Wound/Incisions: Healing Well, No Drainage. No: Erythema Psy/Mental Status: Alert - Problem List Review Problem List Initiated/Reviewed/Updated: Yes - My Orders Last 24 Hours: My Active Orders 08/27/17 09:34 Ready for Discharge [RC] PER UNIT ROUTINE - Assessment Assessment:: POD #2 s/p PLTCS. - Plan Plan:: Patient to be discharged to home today. Discharge instructions reviewed. Follow up at [facility] 2 and 6 weeks. Infection and bleeding warnings reviewed.
[2017-08-27] MEDS ORDERED: Measles, Mumps & Rubella Vaccine 0.5 ML SDV SUBCUT ONE (10:09)
== END 2017-08-27 10:33 | disposition home or self-care (01) | DRG 540 ==
LOC: MW.OB 06:49 → MW.OBCHECK 06:49 → MW.OB 07:08 → OBSVTOIN 07:46 → MW.OB 18:57
PROVIDERS: ADMIT Obstetrics & Gynecology; ATTEND Obstetrics & Gynecology
PROC: 10D00Z1 Extraction of Products of Conception, Low, Open Approach (ICD-10-PCS; principal; 2017-08-25)
DX: O98.32 Other infections with a predominantly sexual mode of transmission complicating childbirth (principal); A60.00 Herpesviral infection of urogenital system, unspecified; Z37.0 Single live birth; Z3A.39 39 weeks gestation of pregnancy; Z79.899 Other long term (current) drug therapy
CPT/HCPCS: 01961; 36415; 59025; 84112; 85014; 85018; 85027; 86850; 86900; 86901; 90471; 90707; A9270-GY; J1200; J1885; J2250; J2274; J2300; J2405; J2590; J3010; J7120

== ENCOUNTER 2018-12-09 18:17 | Emergency (ER) | payer OTHER ==
[2018-12-09] MEDS ORDERED: Ketorolac 30 MG/ML SDV IVPUSH ONE (18:29)
[2018-12-09] MEDS ORDERED: Ondansetron 4 MG/2 ML SDV IVPUSH ONE (18:29)
[2018-12-09] MEDS ORDERED: Sodium Chloride 0.9% 1,000 ML IV ONE (18:29)
--- NOTE | 2018-12-09 18:32 | EDM.PDOC ---
<Dae Huerta J - Last Filed: 12/09/18 18:30> ED HPI GENERAL MEDICAL PROBLEM - General Chief Complaint: Flank Pain Stated Complaint: BACK PAIN AND NAUSEA Time Seen by Provider: 12/09/18 18:29 - History of Present Illness INITIAL COMMENTS - FREE TEXT/NARRATIVE: HISTORY AND PHYSICAL: History of present illness: Patient's 28-year-old white female presents with concern of acute right flank pain associated nausea she teaches similar episode in the past with urolithiasis she denies fever chills denies trauma denies any chance of denies vaginal discharge Review of systems: As per history of present illness and below otherwise all systems reviewed and negative. Past medical history: As per history of present illness and as reviewed below otherwise noncontributory. Surgical history: As per history of present illness and as reviewed below otherwise noncontributory. Social history: No reported history of drug or alcohol abuse. Family history: As per history of present illness and as reviewed below otherwise noncontributory. Physical exam: HEENT: Atraumatic, normocephalic, pupils reactive, negative for conjunctival pallor or scleral icterus, mucous membranes moist, throat clear, neck supple, nontender, trachea midline. Lungs: Clear to auscultation, breath sounds equal bilaterally, chest nontender. Heart: S1S2, regular, negative for clicks, rubs, or JVD. Abdomen: Soft, nondistended, nontender. Negative for masses or hepatosplenomegaly. Right-sided costovertebral tenderness. Pelvis: Stable nontender. Genitourinary: Deferred. Rectal: Deferred. Extremities: Atraumatic, negative for cords or calf pain. Neurovascular unremarkable. Neuro: Awake, alert, oriented. Cranial nerves II through XII unremarkable. Cerebellum unremarkable. Motor and sensory unremarkable throughout. Exam nonfocal. Diagnostics: CBC CMP UA hCG CT abdomen and pelvis Therapeutics: Saline 1 L bolus and Toradol 30 mg IV Zofran 4 mg IV Impression: #1 acute right flank pain #2 history of urolithiasis Definitive disposition and diagnosis as appropriate pending reevaluation and review of above. - Related Data Allergies Allergy/AdvReac Type Severity Reaction Status Date / Time No Known Allergies Allergy Verified 12/09/18 18:48 Home Meds: Home Meds valACYclovir [Valtrex] 500 mg PO BID PRN 04/22/17 [History] Dextroamphetamine/Amphetamine [Adderall 10 mg Tablet] 1 tab PO DAILY 12/09/18 [ History] Past Medical History - Past Health History Medical/Surgical History: Denies Medical/Surgical History HEENT History: Reports: None Cardiovascular History: Reports: None Respiratory History: Reports: None Gastrointestinal History: Reports: None Genitourinary History: Reports: Other (See Below) Other Genitourinary History: cystc vaginal wall removed OPERATIONS SUPPORT SPECIALIST History: Reports: Other (See Below) Other OPERATIONS SUPPORT SPECIALIST History: cstc off vaginal wall Musculoskeletal History: Reports: None Neurological History: Reports: None Psychiatric History: Reports: None Endocrine/Metabolic History: Reports: None Hematologic History: Reports: None Immunologic History: Reports: None Oncologic (Cancer) History: Reports: None Dermatologic History: Reports: None - Infectious Disease History Infectious Disease History: Reports: Chicken Pox, Herpes - Past Surgical History Head Surgeries/Procedures: Reports: None HEENT Surgical History: Reports: None Cardiovascular Surgical History: Reports: None Female Surgical History: Reports: None Social & Family History - Family History Family Medical History: Noncontributory - Caffeine Use Caffeine Use: Reports: Tea ED ROS GENERAL - Review of Systems Review Of Systems: ROS reveals no pertinent complaints other than HPI. ED EXAM, GENERAL - Physical Exam Exam: See Below (dictation) Course - Vital Signs Last Recorded V/S: Last Vital Signs Temp 97 F 12/09/18 18:33 Pulse 98 12/09/18 20:30 Resp 20 12/09/18 20:30 BP 123/75 12/09/18 20:30 Pulse Ox 98 12/09/18 20:30 - Orders/Labs/Meds Labs: Laboratory Tests 12/09/18 12/09/18 12/09/18 Range/Units 18:30 18:42 18:42 WBC 14.08 H (4.0-11.0) K/uL RBC 5.38 (4.30-5.90) M/uL Hgb 15.8 (12.0-16.0) g/dL Hct 47.3 H (36.0-46.0) % MCV 87.9 (80.0-98.0) fL MCH 29.4 (27.0-32.0) pg MCHC 33.4 (31.0-37.0) g/dL RDW Std Deviation 42.1 (28.0-62.0) fl RDW Coeff of Pardeep 13 (11.0-15.0) % Plt Count 246 (150-400) K/uL MPV 10.80 (7.40-12.00) fL Neut % (Auto) 84.5 H (48.0-80.0) % Lymph % (Auto) 10.2 L (16.0-40.0) % [place] % (Auto) 4.3 (0.0-15.0) % Eos % (Auto) 0.9 (0.0-7.0) % Baso % (Auto) 0.1 (0.0-1.5) % Neut # (Auto) 11.9 H (1.4-5.7) K/uL Lymph # (Auto) 1.4 (0.6-2.4) K/uL [place] # (Auto) 0.6 (0.0-0.8) K/uL Eos # (Auto) 0.1 (0.0-0.7) K/uL Baso # (Auto) 0.0 (0.0-0.1) K/uL Nucleated RBC % 0.0 /100WBC Nucleated RBCs # 0 K/uL Sodium 134 L (136-145) mmol/L Potassium 3.7 (3.5-5.1) mmol/L Chloride 102 (98-107) mmol/L Carbon Dioxide 25.5 (21.0-32.0) mmol/L BUN 9 (7.0-18.0) mg/dL Creatinine 0.8 (0.6-1.0) mg/dL Est Cr Clr Drug Dosing 78.30 mL/min Estimated GFR (MDRD) > 60.0 ml/min Glucose 121 H (74-106) mg/dL Calcium 9.8 (8.5-10.1) mg/dL Total Bilirubin 0.4 (0.2-1.0) mg/dL AST 18 (15-37) IU/L ALT 29 (14-63) IU/L Alkaline Phosphatase 86 (46-116) U/L Total Protein 7.3 (6.4-8.2) g/dL Albumin 4.3 (3.4-5.0) g/dL Globulin 3.0 (2.6-4.0) g/dL Albumin/Globulin Ratio 1.4 (0.9-1.6) HCG, Qual (NEG) Urine Color RED Urine Appearance CLOUDY Urine pH 6.0 (5.0-8.0) Ur Specific [place] >= 1.030 (1.001-1.035) Urine Protein 30 H (NEGATIVE) mg/dL Urine Glucose (UA) NEGATIVE (NEGATIVE) mg/dL Urine Ketones TRACE H (NEGATIVE) mg/dL Urine Occult Blood LARGE H (NEGATIVE) Urine Nitrite NEGATIVE (NEGATIVE) Urine Bilirubin NEGATIVE (NEGATIVE) Urine Urobilinogen 0.2 (<2.0) EU/dL Ur Leukocyte Esterase NEGATIVE (NEGATIVE) Urine RBC TOO NUMEROUS TO CT H (0-2/HPF) Urine WBC 0-1 (0-5/HPF) Ur Epithelial Cells OCCASIONAL (NONE-FEW) Urine Bacteria RARE (NEGATIVE) 12/09/18 Range/Units 18:42 WBC (4.0-11.0) K/uL RBC (4.30-5.90) M/uL Hgb (12.0-16.0) g/dL Hct (36.0-46.0) % MCV (80.0-98.0) fL MCH (27.0-32.0) pg MCHC (31.0-37.0) g/dL RDW Std Deviation (28.0-62.0) fl RDW Coeff of Pardeep (11.0-15.0) % Plt Count (150-400) K/uL MPV (7.40-12.00) fL Neut % (Auto) (48.0-80.0) % Lymph % (Auto) (16.0-40.0) % [place] % (Auto) (0.0-15.0) % Eos % (Auto) (0.0-7.0) % Baso % (Auto) (0.0-1.5) % Neut # (Auto) (1.4-5.7) K/uL Lymph # (Auto) (0.6-2.4) K/uL [place] # (Auto) (0.0-0.8) K/uL Eos # (Auto) (0.0-0.7) K/uL Baso # (Auto) (0.0-0.1) K/uL Nucleated RBC % /100WBC Nucleated RBCs # K/uL Sodium (136-145) mmol/L Potassium (3.5-5.1) mmol/L Chloride (98-107) mmol/L Carbon Dioxide (21.0-32.0) mmol/L BUN (7.0-18.0) mg/dL Creatinine (0.6-1.0) mg/dL Est Cr Clr Drug Dosing mL/min Estimated GFR (MDRD) ml/min Glucose (74-106) mg/dL Calcium (8.5-10.1) mg/dL Total Bilirubin (0.2-1.0) mg/dL AST (15-37) IU/L ALT (14-63) IU/L Alkaline Phosphatase (46-116) U/L Total Protein (6.4-8.2) g/dL Albumin (3.4-5.0) g/dL Globulin (2.6-4.0) g/dL Albumin/Globulin Ratio (0.9-1.6) HCG, Qual NEGATIVE (NEG) Urine Color Urine Appearance Urine pH (5.0-8.0) Ur Specific [place] (1.001-1.035) Urine Protein (NEGATIVE) mg/dL Urine Glucose (UA) (NEGATIVE) mg/dL Urine Ketones (NEGATIVE) mg/dL Urine Occult Blood (NEGATIVE) Urine Nitrite (NEGATIVE) Urine Bilirubin (NEGATIVE) Urine Urobilinogen (<2.0) EU/dL Ur Leukocyte Esterase (NEGATIVE) Urine RBC (0-2/HPF) Urine WBC (0-5/HPF) Ur Epithelial Cells (NONE-FEW) Urine Bacteria (NEGATIVE) Meds: Medications Discontinued Medications Generic Name Dose Route Start Last Admin Trade Name Cordellq PRN Reason Stop Dose Admin Sodium Chloride 1,000 mls @ 999 mls/hr 12/09/18 18:29 12/09/18 18:49 Normal Saline IV 12/09/18 19:29 999 mls/hr STAT ONE Administration Ketorolac Tromethamine 30 mg 12/09/18 18:29 12/09/18 18:51 Toradol IVPUSH 12/09/18 18:30 30 mg ONETIME ONE Administration Methylprednisolone Sodium Succinate 125 mg 12/09/18 20:13 12/09/18 20:29 Solu-Medrol IVPUSH 12/09/18 20:14 125 mg ONETIME ONE Administration Morphine Sulfate 2 mg 12/09/18 20:18 12/09/18 20:29 Morphine IVPUSH 12/09/18 20:19 2 mg ONETIME ONE Administration Ondansetron HCl 4 mg 12/09/18 18:29 12/09/18 18:50 Zofran IVPUSH 12/09/18 18:30 4 mg ONETIME ONE Administration Tamsulosin HCl 0.4 mg 12/09/18 20:13 12/09/18 20:28 Flomax PO 12/09/18 20:14 0.4 mg ONETIME ONE Administration Departure - Departure Disposition: Home, Self-Care 01 Clinical Impression: Ureteral stone - Discharge Information Referrals: Delilah Morales FILLING MACHINE OPERATOR [Primary Care Provider] - Forms: ED Department Discharge Additional Instructions: Medication as prescribed Filter urine, collection equipment provided Return stone to primary care or urology for pathology Follow-up with primary care in 2 weeks [facility] - Primary Care [address] [place] [address] [facility] - Urology [address] [place] [address] The following information is given to patients seen in the emergency department who are being discharged to home. This information is to outline your options for follow-up care. We provide all patients seen in our emergency department with a follow-up referral. The need for follow-up, as well as the timing and circumstances, are variable depending upon the specifics of your emergency department visit. If you don't have a primary care physician on staff, we will provide you with a referral. We always advise you to contact your personal physician following an emergency department visit to inform them of the circumstance of the visit and for follow-up with them and/or the need for any referrals to a consulting specialist. The emergency department will also refer you to a specialist when appropriate. This referral assures that you have the opportunity for follow-up care with a specialist. All of these measure are taken in an effort to provide you with optimal care, which includes your follow-up. Under all circumstances we always encourage you to contact your private physician who remains a resource for coordinating your care. When calling for follow-up care, please make the office aware that this follow-up is from your recent emergency room visit. If for any reason you are refused follow-up, please contact the [facility] emergency department at and asked to speak to the emergency department charge nurse. <Lokesh Jacome - Last Filed: 12/09/18 21:03> ED HPI GENERAL MEDICAL PROBLEM - History of Present Illness INITIAL COMMENTS - FREE TEXT/NARRATIVE: Seen and examined the patient and agree with the above No fever vomiting chills sweats 5 out of 10 pain, currently not rated as tolerable with above treatment. Gen. no acute distress HEENT grossly within normal limits Chest clear CV regular AbdomeSoft nontender nondistended bowel sounds all 4 quadrants Extremities full range of motion strength 5 out of 5 no edema RUBBER ATTACHER alert nonfocal Lab as below Therapeutics Continue normal saline Flomax 0.4 mg by mouth Morphine 2 mg IV solu- Medrol 125 mg IV Impression 3 Millimeter right ureteral stone Definitive disposition and diagnosis as appropriate pending reevaluation and review of above ED ROS GENERAL - Review of Systems Review Of Systems: See Below ED EXAM, GENERAL - Physical Exam Exam: See Below Departure - Departure Time of Disposition: 21:01 Condition: Good
[2018-12-09 19:12] LABS: CHLORIDE,CL 102 mmol/L (98-107); SODIUM,NA 134 mmol/L (136-145)
--- NOTE | 2018-12-09 20:09 | CT ---
INDICATION: Right flank pain and nausea TECHNIQUE: CT abdomen and pelvis without contrast. COMPARISON: None. FINDINGS: Lower chest: Unremarkable. Liver: Normal in size and attenuation. No masses. Gallbladder and bile ducts: No stones or inflammation. No biliary dilatation. Pancreas: Unremarkable. No mass or inflammation. Spleen: Normal in size. No masses. Adrenal glands: Normal in size. No nodules. Kidneys: There is a 3 mm stone at the right ureteropelvic junction causing minimal hydronephrosis. Few tiny stones remain in the right kidney. There are 5 small stones in the left kidney. GI tract: Unremarkable. Normal in caliber. No sign of mass or inflammation. Normal appendix. Vasculature: Unremarkable. Lymph nodes: No lymphadenopathy. Abdominal wall/Omentum/Peritoneum: Unremarkable. No sign of mass or infiltration. No free air or significant free fluid. Pelvis: IUD appears in satisfactory position. Otherwise unremarkable pelvis. Bones: Unremarkable for age. IMPRESSION: 3 mm stone at the right UPJ is causing minimal hydronephrosis. There is bilateral nephrolithiasis. Please note that all CT scans at this facility use dose modulation, iterative reconstruction, and/or weight-based dosing when appropriate to reduce radiation dose to as low as reasonably achievable. Dictated by Ranjith Mooney MD @ Dec 09 2018 8:01PM Signed by Dr. Ranjith Mooney @ Dec 09 2018 8:07PM
[2018-12-09] MEDS ORDERED: Tamsulosin 0.4 MG Cap.ER PO ONE (20:13)
[2018-12-09] MEDS ORDERED: methylPREDNISolone Sodium Succinate 125 MG/2 ML SDV IVPUSH ONE (20:13)
[2018-12-09] MEDS ORDERED: Morphine 2 MG/ML Syringe IVPUSH ONE (20:18)
[2018-12-09 20:31] VITALS: BP 123/75
== END 2018-12-09 21:19 | disposition home or self-care (01) ==
LOC: MW.ED 18:17
DX: N13.2 Hydronephrosis with renal and ureteral calculous obstruction (principal); Z79.899 Other long term (current) drug therapy
CPT/HCPCS: 36415; 74176; 80053; 81001; 84703; 85025; 96360; 96374; 96375; 99284; A9270; J1885; J2270; J2405; J2930; J7040

== ENCOUNTER 2018-12-12 11:31 | Emergency (ER) | payer OTHER ==
[2018-12-12] MEDS ORDERED: Ketorolac 60 MG/2 ML SDV IM ONE (12:15)
--- NOTE | 2018-12-12 12:53 | EDM.PDOC ---
ED HPI GENERAL MEDICAL PROBLEM - General Chief Complaint: Flank Pain Stated Complaint: POSSIBLE KIDNEY STONES Time Seen by Provider: 12/12/18 13:00 Source of Information: Reports: Patient History Limitations: Reports: No Limitations - History of Present Illness INITIAL COMMENTS - FREE TEXT/NARRATIVE: HISTORY AND PHYSICAL: History of present illness: Patient is a 28-year-old female here with complaints of pain secondary to kidney stones. Seen in the ED 3 days ago and diagnosed with a 3 mm stone on the right and multiple small stones in the left on CT scan. She reports that her pain is not getting any better but is not getting worse and [place] 5/325 is not helping. She denies fevers, chills, vomiting, diarrhea, abdominal pain, gross hematuria. Reiew of systems: As per history of present illness and below otherwise all systems reviewed and negative. Past medical history: As per history of present illness and as reviewed below otherwise noncontributory. Surgical history: As per history of present illness and as reviewed below otherwise noncontributory. Social history: No reported history of drug or alcohol abuse. Family history: As per history of present illness and as reviewed below otherwise noncontributory. Physical exam: General: Patient sitting comfortably in no acute distress and nontoxic appearing HEENT: Atraumatic, normocephalic, pupils reactive, negative for conjunctival pallor or scleral icterus, mucous membranes moist, throat clear, neck supple, nontender, trachea midline. No meningeal signs. Lungs: Clear to auscultation, breath sounds equal bilaterally, chest nontender. Heart: S1S2, regular, negative for clicks, rubs, or overt murmur. Abdomen: Soft, nondistended, nontender. Negative for masses or hepatosplenomegaly. Right CVA tenderness. No rigidity, rebound, guarding. Pelvis: Stable nontender. Genitourinary: Deferred. Rectal: Deferred. Extremities: Atraumatic, negative for cords or calf pain. Neurovascular unremarkable. Neuro: Awake, alert, oriented. Cranial nerves II through XII unremarkable. Cerebellum unremarkable. Motor and sensory unremarkable throughout. Exam nonfocal. Notes: Discussed with Dr. Kolb slight increase in creatine, he will see patient in clinic Tuesday. Diagnostics CBC, CMP, UA Therapeutics: Toradol 60mg IM [place] 10/325mg Prescriptions: [place] 10/3250mg (#12) Impression: Nephrolithiasis Plan: 1. Take medication as instructed, do not take while driving as it may make you drowsy 2. Follow up with Dr. Kolb, please call the number provided to schedule your appointment for tuesday. 3. Return to ED as needed as discussed Definitive disposition and diagnosis as appropriate pending reevaluation and review of above. Right Flank Pain Score (Numeric/FACES): 10 - Related Data Allergies Allergy/AdvReac Type Severity Reaction Status Date / Time No Known Allergies Allergy Verified 12/09/18 18:48 Home Meds: Home Meds valACYclovir [Valtrex] 500 mg PO BID PRN 04/22/17 [History] Dextroamphetamine/Amphetamine [Adderall 10 mg Tablet] 1 tab PO DAILY 12/09/18 [ History] Past Medical History - Past Health History Medical/Surgical History: Denies Medical/Surgical History HEENT History: Reports: None Cardiovascular History: Reports: None Respiratory History: Reports: None Gastrointestinal History: Reports: None Genitourinary History: Reports: Other (See Below) Other Genitourinary History: cystc vaginal wall removed HIM TECH History: Reports: Other (See Below) Other HIM TECH History: cstc off vaginal wall Musculoskeletal History: Reports: None Neurological History: Reports: None Psychiatric History: Reports: Anxiety Endocrine/Metabolic History: Reports: None Hematologic History: Reports: None Immunologic History: Reports: None Oncologic (Cancer) History: Reports: None Dermatologic History: Reports: None - Infectious Disease History Infectious Disease History: Reports: Chicken Pox - Past Surgical History Head Surgeries/Procedures: Reports: None HEENT Surgical History: Reports: None Cardiovascular Surgical History: Reports: None Female Surgical History: Reports: None Social & Family History - Family History Family Medical History: Noncontributory - Tobacco Use Smoking Status *Q: Never Smoker - Caffeine Use Caffeine Use: Reports: None - Recreational Drug Use Recreational Drug Use: No ED ROS GENERAL - Review of Systems Review Of Systems: ROS reveals no pertinent complaints other than HPI. ED EXAM, RENAL/ - Physical Exam Exam: See Below (see dictation) Course - Vital Signs Last Recorded V/S: Last Vital Signs Temp 97.8 F 12/12/18 11:47 Pulse 70 12/12/18 14:00 Resp 16 12/12/18 14:00 BP 135/81 12/12/18 14:00 Pulse Ox 97 12/12/18 14:00 - Orders/Labs/Meds Labs: Laboratory Tests 12/12/18 12/12/18 12/12/18 Range/Units 12:06 12:06 12:38 WBC 11.39 H (4.0-11.0) K/uL RBC 5.27 (4.30-5.90) M/uL Hgb 15.2 (12.0-16.0) g/dL Hct 46.6 H (36.0-46.0) % MCV 88.4 (80.0-98.0) fL MCH 28.8 (27.0-32.0) pg MCHC 32.6 (31.0-37.0) g/dL RDW Std Deviation 43.3 (28.0-62.0) fl RDW Coeff of Pardeep 13 (11.0-15.0) % Plt Count 201 (150-400) K/uL MPV 10.50 (7.40-12.00) fL Neut % (Auto) 80.9 H (48.0-80.0) % Lymph % (Auto) 11.0 L (16.0-40.0) % [place] % (Auto) 7.2 (0.0-15.0) % Eos % (Auto) 0.7 (0.0-7.0) % Baso % (Auto) 0.2 (0.0-1.5) % Neut # (Auto) 9.2 H (1.4-5.7) K/uL Lymph # (Auto) 1.3 (0.6-2.4) K/uL [place] # (Auto) 0.8 (0.0-0.8) K/uL Eos # (Auto) 0.1 (0.0-0.7) K/uL Baso # (Auto) 0.0 (0.0-0.1) K/uL Nucleated RBC % 0.0 /100WBC Nucleated RBCs # 0 K/uL Sodium 141 (136-145) mmol/L Potassium 4.0 (3.5-5.1) mmol/L Chloride 107 (98-107) mmol/L Carbon Dioxide 26.9 (21.0-32.0) mmol/L BUN 13 (7.0-18.0) mg/dL Creatinine 1.2 H (0.6-1.0) mg/dL Est Cr Clr Drug Dosing 52.20 mL/min Estimated GFR (MDRD) 53.1 ml/min Glucose 101 (74-106) mg/dL Calcium 9.6 (8.5-10.1) mg/dL Total Bilirubin 0.5 (0.2-1.0) mg/dL AST 12 L (15-37) IU/L ALT 19 (14-63) IU/L Alkaline Phosphatase 69 (46-116) U/L Total Protein 6.6 (6.4-8.2) g/dL Albumin 3.8 (3.4-5.0) g/dL Globulin 2.8 (2.6-4.0) g/dL Albumin/Globulin Ratio 1.4 (0.9-1.6) Urine Color YELLOW Urine Appearance CLEAR Urine pH 7.0 (5.0-8.0) Ur Specific [place] 1.020 (1.001-1.035) Urine Protein NEGATIVE (NEGATIVE) mg/dL Urine Glucose (UA) NEGATIVE (NEGATIVE) mg/dL Urine Ketones 15 H (NEGATIVE) mg/dL Urine Occult Blood TRACE-LYSED H (NEGATIVE) Urine Nitrite NEGATIVE (NEGATIVE) Urine Bilirubin NEGATIVE (NEGATIVE) Urine Urobilinogen 0.2 (<2.0) EU/dL Ur Leukocyte Esterase NEGATIVE (NEGATIVE) Urine RBC 1-5 (0-2/HPF) Urine WBC 0-2 (0-5/HPF) Ur Epithelial Cells FEW (NONE-FEW) Amorphous Sediment LIGHT (NEGATIVE) Urine Bacteria NOT SEEN (NEGATIVE) Urine HCG, Qual (NEGATIVE) 12/12/18 Range/Units 12:38 WBC (4.0-11.0) K/uL RBC (4.30-5.90) M/uL Hgb (12.0-16.0) g/dL Hct (36.0-46.0) % MCV (80.0-98.0) fL MCH (27.0-32.0) pg MCHC (31.0-37.0) g/dL RDW Std Deviation (28.0-62.0) fl RDW Coeff of Pardeep (11.0-15.0) % Plt Count (150-400) K/uL MPV (7.40-12.00) fL Neut % (Auto) (48.0-80.0) % Lymph % (Auto) (16.0-40.0) % [place] % (Auto) (0.0-15.0) % Eos % (Auto) (0.0-7.0) % Baso % (Auto) (0.0-1.5) % Neut # (Auto) (1.4-5.7) K/uL Lymph # (Auto) (0.6-2.4) K/uL [place] # (Auto) (0.0-0.8) K/uL Eos # (Auto) (0.0-0.7) K/uL Baso # (Auto) (0.0-0.1) K/uL Nucleated RBC % /100WBC Nucleated RBCs # K/uL Sodium (136-145) mmol/L Potassium (3.5-5.1) mmol/L Chloride (98-107) mmol/L Carbon Dioxide (21.0-32.0) mmol/L BUN (7.0-18.0) mg/dL Creatinine (0.6-1.0) mg/dL Est Cr Clr Drug Dosing mL/min Estimated GFR (MDRD) ml/min Glucose (74-106) mg/dL Calcium (8.5-10.1) mg/dL Total Bilirubin (0.2-1.0) mg/dL AST (15-37) IU/L ALT (14-63) IU/L Alkaline Phosphatase (46-116) U/L Total Protein (6.4-8.2) g/dL Albumin (3.4-5.0) g/dL Globulin (2.6-4.0) g/dL Albumin/Globulin Ratio (0.9-1.6) Urine Color Urine Appearance Urine pH (5.0-8.0) Ur Specific [place] (1.001-1.035) Urine Protein (NEGATIVE) mg/dL Urine Glucose (UA) (NEGATIVE) mg/dL Urine Ketones (NEGATIVE) mg/dL Urine Occult Blood (NEGATIVE) Urine Nitrite (NEGATIVE) Urine Bilirubin (NEGATIVE) Urine Urobilinogen (<2.0) EU/dL Ur Leukocyte Esterase (NEGATIVE) Urine RBC (0-2/HPF) Urine WBC (0-5/HPF) Ur Epithelial Cells (NONE-FEW) Amorphous Sediment (NEGATIVE) Urine Bacteria (NEGATIVE) Urine HCG, Qual NEGATIVE (NEGATIVE) Meds: Medications Discontinued Medications Generic Name Dose Route Start Last Admin Trade Name Vira PRN Reason Stop Dose Admin Hydrocodone Bitart/Acetaminophen 1 tab 12/12/18 13:16 12/12/18 13:55 [place] 325-10 Mg PO 12/12/18 13:17 1 tab ONETIME ONE Administration Ketorolac Tromethamine 60 mg 12/12/18 12:15 12/12/18 12:35 Toradol IM 12/12/18 12:16 60 mg ONETIME ONE Administration Departure - Departure Time of Disposition: 13:31 Disposition: Home, Self-Care 01 Condition: Good Clinical Impression: Nephrolithiasis - Discharge Information Instructions: Kidney Stones, [id number] Referrals: Delilah Morales NP [Primary Care Provider] - Forms: ED Department Discharge Additional Instructions: The following information is given to patients seen in the emergency department who are being discharged to home. This information is to outline your options for follow-up care. We provide all patients seen in our emergency department with a follow-up referral. The need for follow-up, as well as the timing and circumstances, are variable depending upon the specifics of your emergency department visit. If you don't have a primary care physician on staff, we will provide you with a referral. We always advise you to contact your personal physician following an emergency department visit to inform them of the circumstance of the visit and for follow-up with them and/or the need for any referrals to a consulting specialist. The emergency department will also refer you to a specialist when appropriate. This referral assures that you have the opportunity for follow-up care with a specialist. All of these measure are taken in an effort to provide you with optimal care, which includes your follow-up. Under all circumstances we always encourage you to contact your private physician who remains a resource for coordinating your care. When calling for follow-up care, please make the office aware that this follow-up is from your recent emergency room visit. If for any reason you are refused follow-up, please contact the [facility] Emergency Department at and asked to speak to the emergency department charge nurse. [facility] [address] [place] [id number] [facility] [address] [place] [address] [facility] - Urology [address] [place] [address] 1. Take medication as instructed, do not take while driving as it may make you drowsy 2. Follow up with Dr. Kolb, please call the number provided to schedule your appointment for tuesday. 3. Return to ED as needed as discussed
[2018-12-12] MEDS ORDERED: Acetaminophen/HYDROcodone 325-10 MG Tab PO ONE (13:16)
[2018-12-12 14:22] VITALS: BP 135/81
== END 2018-12-12 14:00 | disposition home or self-care (01) ==
LOC: MW.ED 11:31
DX: N13.2 Hydronephrosis with renal and ureteral calculous obstruction (principal); Z79.899 Other long term (current) drug therapy
CPT/HCPCS: 36415; 80053; 81001; 81025; 85025; 96372; 99283; A9270; J1885

== ENCOUNTER 2019-01-11 06:43 | Day surgery (SDC) | payer OTHER ==
[~2019-01-11 06:43] MED LIST: Lactated Ringers 1,000 ML IV SCH; Sodium Chloride 0.9% 10 ML SDV IV PRN; Sodium Chloride 0.9% 10 ML Syringe FLUSH PRN; Sodium Chloride 0.9% 2.5 ML Syringe FLUSH PRN
[2019-01-11] MEDS ORDERED: Rocuronium 100 MG/10 ML Syringe ONE (07:18)
[2019-01-11] MEDS ORDERED: Ondansetron 4 MG/2 ML SDV ONE (07:18)
[2019-01-11] MEDS ORDERED: Lidocaine 2% 5 ML SDV ONE (07:18)
[2019-01-11] MEDS ORDERED: fentaNYL 250 MCG/5 ML SDV ONE (07:18)
[2019-01-11] MEDS ORDERED: Dexamethasone 4 MG/ML 5 ML MDV ONE (07:18)
[2019-01-11] MEDS ORDERED: Midazolam 1 MG/ML 2 ML SDV ONE (07:18)
[2019-01-11] MEDS ORDERED: Propofol 200 MG/20 ML SDV ONE (07:18)
--- NOTE | 2019-01-11 07:26 | PCM.PREANE ---
Preanesthetic Assessment - Anesthesia/Transfusion/Family Hx Anesthesia History: Prior Anesthesia Reaction (awoke agitated in PACU) Family History of Anesthesia Reaction: No Transfusion History: No Prior Transfusion(s) - Review of Systems General: No Symptoms Pulmonary: No Symptoms Cardiovascular: No Symptoms Gastrointestinal: Abdominal Pain Neurological: No Symptoms Other: Reports: None - Physical Assessment NPO Status Date: 01/10/19 O2 Sat by Pulse Oximetry: 98 Respiratory Rate: 14 Vital Signs: Last Vital Signs Temp 97.3 F 01/11/19 07:03 Pulse 83 01/11/19 07:03 Resp 14 01/11/19 07:03 BP 113/68 01/11/19 07:03 Pulse Ox 98 01/11/19 07:03 Height: 5 ft 7 in Weight: 85.729 kg ASA Class: 2 Dentition: Reports: Normal Dentition ROM/Head Extension: Full Lungs: Clear to Auscultation, Normal Respiratory Effort Cardiovascular: Regular Rate, Regular Rhythm - Lab Values: Laboratory Last Values Urine HCG, Qual NEGATIVE (NEGATIVE) 01/11/19 06:50 - Allergies Allergies/Adverse Reactions: Allergies Allergy/AdvReac Type Severity Reaction Status Date / Time No Known Allergies Allergy Verified 01/08/19 17:05 - Blood Blood Available: No - Anesthesia Plan Pre-Op Medication Ordered: None - Acknowledgements Anesthesia Type Planned: General Anesthesia Pt an Appropriate Candidate for the Planned Anesthesia: Yes Alternatives and Risks of Anesthesia Discussed w Pt/Guardian: Yes Pt/Guardian Understands and Agrees with Anesthesia Plan: Yes Additional Comments: pmh: proximal ureteral/pelvic stone PLAN: get PreAnesthesia Questionnaire - Past Health History Medical/Surgical History: Denies Medical/Surgical History HEENT History: Reports: Other (See Below) Other HEENT History: wears glasses/contacts, hx of fx nose Cardiovascular History: Reports: None Respiratory History: Reports: None Gastrointestinal History: Reports: Other (See Below) Other Gastrointestinal History: occasional heartburn, takes OTC meds Genitourinary History: Reports: Renal Calculus Other Genitourinary History: was hospitalized during with kidney infection, has passed stones in the past CLAIMS COUNSEL History: Reports: , Other (See Below) Other OB/BYN History: hx of vaginal herpes Musculoskeletal History: Reports: Back Pain, Chronic Neurological History: Reports: Headaches, Chronic, Other (See Below) Other Neuro History: headaches possibly related to eyesight, hx of motion sickness Psychiatric History: Reports: ADHD, Anxiety Other Psychiatric History: is being re-evaluated for ADHD- not taking medication now Endocrine/Metabolic History: Reports: None Hematologic History: Reports: None Immunologic History: Reports: None Oncologic (Cancer) History: Reports: None Dermatologic History: Reports: Other (See Below) Other Dermatologic History: hx of vaginal herpes - Infectious Disease History Infectious Disease History: Reports: Chicken Pox - Past Surgical History Head Surgeries/Procedures: Reports: None HEENT Surgical History: Reports: None Cardiovascular Surgical History: Reports: None Female Surgical History: Reports: Section, Other (See Below) Other Female Surgeries/Procedures: excision of vaginal wall cyst - SUBSTANCE USE Smoking Status *Q: Never Smoker Recreational Drug Use History: No - HOME MEDS Home Medications: Home Meds valACYclovir [Valtrex] 500 mg PO BID PRN 04/22/17 [History] buPROPion HCl [Wellbutrin Xl] 300 mg PO ASDIRECTED PRN 01/08/19 [History] - CURRENT (IN HOUSE) MEDS Current Meds: Current Medications Lactated Ringer's (Ringers, Lactated) 1,000 mls @ 100 mls/hr IV ASDIRECTED DARRYN Last Admin: 01/11/19 07:07 Dose: 100 mls/hr Sodium Chloride (Saline Flush) 10 ml FLUSH ASDIRECTED PRN PRN Reason: Keep Vein Open Sodium Chloride (Saline Flush) 2.5 ml FLUSH ASDIRECTED PRN PRN Reason: Keep Vein Open Sodium Chloride (Normal Saline) 10 ml IV ASDIRECTED PRN PRN Reason: IV Use Discontinued Medications Dexamethasone (Dexamethasone) Confirm Administered Dose 20 mg .ROUTE .STK-MED ONE Stop: 01/11/19 07:19 Fentanyl (Sublimaze) Confirm Administered Dose 250 mcg .ROUTE .STK-MED ONE Stop: 01/11/19 07:19 Lidocaine (Xylocaine-Mpf 2%) Confirm Administered Dose 5 ml .ROUTE .STK-MED ONE Stop: 01/11/19 07:19 Midazolam HCl (Versed 1 Mg/Ml) Confirm Administered Dose 2 mg .ROUTE .STK-MED ONE Stop: 01/11/19 07:19 Ondansetron HCl (Zofran) Confirm Administered Dose 4 mg .ROUTE .STK-MED ONE Stop: 01/11/19 07:19 Propofol (Diprivan 20 Ml) Confirm Administered Dose 200 mg .ROUTE .STK-MED ONE Stop: 01/11/19 07:19 Rocuronium [place] (Zemuron) Confirm Administered Dose 100 mg .ROUTE .STK-MED ONE Stop: 01/11/19 07:19
[2019-01-11] MEDS ORDERED: Iopamidol 200-M 10 ML vial ITHECAL ONE (07:31)
[2019-01-11] MEDS ORDERED: Neostigmine Methylsulfate 1 MG/ML 5 ML Syringe ONE (08:28)
[2019-01-11] MEDS ORDERED: Glycopyrrolate 0.2 MG/ML SDV ONE ×2 (08:28→08:29)
[2019-01-11] MEDS ORDERED: Non-Formulary Medication 1 Each (Bupropion Hcl 300 MG) PO PRN (09:17)
[2019-01-11] MEDS ORDERED: valACYclovir 500 MG Tab PO PRN (09:17)
--- NOTE | 2019-01-11 09:26 | PCM.POSTAN ---
POST ANESTHESIA ASSESSMENT - MENTAL STATUS Mental Status: Alert, Oriented - VITAL SIGNS Pulse Rate: 92 SaO2: 97 Resp Rate: 18 Blood Pressure: 118/79 - RESPIRATORY Respiratory Status: Respiratory Rate WNL, Airway Patent, O2 Saturation Stable - CARDIOVASCULAR CV Status: Pulse Rate WNL, Blood Pressure Stable - GASTROINTESTINAL GI Status: No Symptoms - PAIN Pain Score: 0 - POST OP HYDRATION Hydration Status: Adequate & Stable
--- NOTE | 2019-01-11 09:29 | OR ---
SURGEON: Mandeep Kolb M.D. DATE OF PROCEDURE: 01/11/2019 PREOPERATIVE DIAGNOSIS: Left renal stone, upper calyceal. POSTOPERATIVE DIAGNOSIS: Left renal stone, upper calyceal. OPERATION: Extracorporeal shock wave lithotripsy. DESCRIPTION OF PROCEDURE: The patient was given general anesthesia. She was on the lithotripsy table. The position of the patient was adjusted, so the stone could be treated and eventually received a total of 2400 shocks. The shadow of the stone completely disappeared. With that done, the procedure was terminated. The patient was moved to recovery room in stable condition. Follow up as needed. [place] / JULIANE /[id number]
--- NOTE | 2019-01-11 10:31 | PCM48HPAN ---
Post Anesthesia Note - EVALUATION WITHIN 48HRS OF ANESTHETIC Vital Signs in Normal Range: Yes Patient Participated in Evaluation: Yes Respiratory Function Stable: Yes Airway Patent: Yes Cardiovascular Function Stable: Yes Hydration Status Stable: Yes Pain Control Satisfactory: Yes Nausea and Vomiting Control Satisfactory: Yes Mental Status Recovered: Yes Pulse Rate: 92 Resp Rate: 14 Blood Pressure: 118/79
[2019-01-11 12:47] VITALS: BP 122/69
== END 2019-01-11 12:44 | disposition home or self-care (01) ==
LOC: MW.SDS 06:43
PROVIDERS: ATTEND Urology
DX: N20.0 Calculus of kidney (principal)
CPT/HCPCS: 50590; 81025; J1100; J2001; J2250; J2405; J2704; J3010; J3490; J7120; 00873; Q9966

== ENCOUNTER 2019-06-13 15:03 | Emergency (ER) | payer BC, OTHER ==
--- NOTE | 2019-06-13 15:42 | EDM.PDOC ---
ED HPI GENERAL MEDICAL PROBLEM - General Chief Complaint: Genitourinary Problem Stated Complaint: VAGINAL INFECTION Time Seen by Provider: 06/13/19 15:42 Source of Information: Reports: Patient History Limitations: Reports: No Limitations - History of Present Illness INITIAL COMMENTS - FREE TEXT/NARRATIVE: HISTORY AND PHYSICAL: History of present illness: Patient is a 28-year-old female presents to the ED with complaint of vaginal itching. She states she gets bacterial vaginosis frequently. She has been having vaginal itching and thick white vaginal discharge for the past 3-4 days. She denies dysuria, fevers, chills, abdominal pain. Review of systems: As per history of present illness and below otherwise all systems reviewed and negative. Past medical history: As per history of present illness and as reviewed below otherwise noncontributory. Surgical history: As per history of present illness and as reviewed below otherwise noncontributory. Social history: No reported history of drug or alcohol abuse. Family history: As per history of present illness and as reviewed below otherwise noncontributory. Physical exam: General: Patient sitting comfortably in no acute distress and nontoxic appearing HEENT: Atraumatic, normocephalic, pupils reactive, negative for conjunctival pallor or scleral icterus, mucous membranes moist, throat clear, neck supple, nontender, trachea midline. No meningeal signs. Lungs: Clear to auscultation, breath sounds equal bilaterally, chest nontender. Heart: S1S2, regular, negative for clicks, rubs, or overt murmur. Abdomen: Soft, nondistended, nontender. Negative for masses or hepatosplenomegaly. Negative for costovertebral tenderness. No rigidity, rebound , guarding. Pelvis: Stable nontender. Genitourinary: Deferred. Rectal: Deferred. Extremities: Atraumatic, negative for cords or calf pain. Neurovascular unremarkable. Neuro: Awake, alert, oriented. Cranial nerves II through XII unremarkable. Cerebellum unremarkable. Motor and sensory unremarkable throughout. Exam nonfocal. Notes: Diagnostics: Gonorrhea/chlamydia, trich/BV/cand, UA Therapeutics: [] Prescriptions: Impression: [] Plan: [] Definitive disposition and diagnosis as appropriate pending reevaluation and review of above. vagina Pain Score (Numeric/FACES): 5 - Related Data Allergies Allergy/AdvReac Type Severity Reaction Status Date / Time No Known Allergies Allergy Verified 06/13/19 15:25 Home Meds: Home Meds valACYclovir [Valtrex] 500 mg PO BID PRN 04/22/17 [History] buPROPion HCl [Wellbutrin Xl] 300 mg PO DAILY PRN 01/08/19 [History] Lisdexamfetamine Dimesylate [Vyvanse] 60 mg PO DAILY 06/13/19 [History] hydrOXYzine HCL [hydrOXYzine] 1 tab PO BID PRN 06/13/19 [History] Past Medical History - Past Health History Medical/Surgical History: Denies Medical/Surgical History HEENT History: Reports: Other (See Below) Other HEENT History: wears glasses/contacts, hx of fx nose Cardiovascular History: Reports: None Respiratory History: Reports: None Gastrointestinal History: Reports: Other (See Below) Other Gastrointestinal History: occasional heartburn, takes OTC meds Genitourinary History: Reports: Renal Calculus Other Genitourinary History: was hospitalized during with kidney infection, has passed stones in the past TREE PLANTER History: Reports: , Other (See Below) Other TREE PLANTER History: hx of vaginal herpes Musculoskeletal History: Reports: Back Pain, Chronic Neurological History: Reports: Headaches, Chronic, Other (See Below) Other Neuro History: headaches possibly related to eyesight, hx of motion sickness Psychiatric History: Reports: ADHD, Anxiety Other Psychiatric History: is being re-evaluated for ADHD- not taking medication now Endocrine/Metabolic History: Reports: None Hematologic History: Reports: None Immunologic History: Reports: None Oncologic (Cancer) History: Reports: None Dermatologic History: Reports: Other (See Below) Other Dermatologic History: hx of vaginal herpes - Infectious Disease History Infectious Disease History: Reports: Herpes - Past Surgical History Head Surgeries/Procedures: Reports: None HEENT Surgical History: Reports: None Cardiovascular Surgical History: Reports: None Female Surgical History: Reports: Section, Other (See Below) Other Female Surgeries/Procedures: excision of vaginal wall cyst Social & Family History - Family History Family Medical History: Noncontributory - Tobacco Use Smoking Status *Q: Never Smoker - Caffeine Use Caffeine Use: Reports: None - Recreational Drug Use Recreational Drug Use: No ED ROS GENERAL - Review of Systems Review Of Systems: Comprehensive ROS is negative, except as noted in HPI. ED EXAM, RENAL/ - Physical Exam Exam: See Below (see dictation) Course - Vital Signs Last Recorded V/S: Last Vital Signs Temp 97.7 F 06/13/19 15:23 Pulse 111 H 06/13/19 15:23 Resp 16 06/13/19 15:23 BP 124/78 06/13/19 15:23 Pulse Ox 96 06/13/19 15:23 - Orders/Labs/Meds Orders: Active Orders 24 hr Category Date Time Status CHLAMYDIA AND GONORRHEA BY TMA Stat Lab 06/13/19 16:00 Received Labs: Laboratory Tests 06/13/19 06/13/19 Range/Units 15:43 16:00 Urine Color YELLOW Urine Appearance CLEAR Urine pH 6.0 (5.0-8.0) Ur Specific [place] 1.025 (1.001-1.035) Urine Protein NEGATIVE (NEGATIVE) mg/dL Urine Glucose (UA) NEGATIVE (NEGATIVE) mg/dL Urine Ketones NEGATIVE (NEGATIVE) mg/dL Urine Occult Blood NEGATIVE (NEGATIVE) Urine Nitrite NEGATIVE (NEGATIVE) Urine Bilirubin NEGATIVE (NEGATIVE) Urine Urobilinogen 0.2 (<2.0) EU/dL Ur Leukocyte Esterase NEGATIVE (NEGATIVE) Shakira species DNA NEGATIVE (NEGATIVE) Gardnerella DNA Probe NEGATIVE (NEGATIVE) Trichomonas DNA Probe NEGATIVE (NEGATIVE) Meds: Medications Discontinued Medications Generic Name Dose Route Start Last Admin Trade Name Vira PRN Reason Stop Dose Admin Azithromycin 1,000 mg 06/13/19 16:55 Zithromax PO 06/13/19 16:56 NOW STA Ceftriaxone Sodium 250 mg/ 1 mls @ 1 mls/sec 06/13/19 16:55 Lidocaine HCl IM 06/13/19 16:56 ONETIME ONE Departure - Departure Time of Disposition: 16:57 Disposition: Home, Self-Care 01 Condition: Good Clinical Impression: Concern about STD in female without diagnosis - Discharge Information Referrals: Delilah Morales NP [Primary Care Provider] - Forms: ED Department Discharge Additional Instructions: The following information is given to patients seen in the emergency department who are being discharged to home. This information is to outline your options for follow-up care. We provide all patients seen in our emergency department with a follow-up referral. The need for follow-up, as well as the timing and circumstances, are variable depending upon the specifics of your emergency department visit. If you don't have a primary care physician on staff, we will provide you with a referral. We always advise you to contact your personal physician following an emergency department visit to inform them of the circumstance of the visit and for follow-up with them and/or the need for any referrals to a consulting specialist. The emergency department will also refer you to a specialist when appropriate. This referral assures that you have the opportunity for follow-up care with a specialist. All of these measure are taken in an effort to provide you with optimal care, which includes your follow-up. Under all circumstances we always encourage you to contact your private physician who remains a resource for coordinating your care. When calling for follow-up care, please make the office aware that this follow-up is from your recent emergency room visit. If for any reason you are refused follow-up, please contact the [facility] at and asked to speak to the emergency department charge nurse. [facility] [address] [place] [id number] [place] [address] Infection precautions as instructed Follow up with primary car Sepsis Event Note - Evaluation Sepsis Screening Result: No Definite Risk - Focused Exam Vital Signs: Vital Signs Temp Pulse Resp BP Pulse Ox 06/13/19 15:23 97.7 F 111 H 16 124/78 96 Date Exam was Performed: 06/13/19 Time Exam was Performed: 16:57 - My Orders Last 24 Hours: My Active Orders 06/13/19 16:00 CHLAMYDIA AND GONORRHEA BY TMA Stat - Assessment/Plan Last 24 Hours: My Active Orders 06/13/19 16:00 CHLAMYDIA AND GONORRHEA BY TMA Stat
[2019-06-13] MEDS ORDERED: cefTRIAXone 250 MG in Lidocaine 1% 1 ML IM ONE (16:55)
[2019-06-13] MEDS ORDERED: Azithromycin 250 MG Tab PO STA (16:55)
[2019-06-13 18:12] VITALS: BP 119/79; PULSE 105
== END 2019-06-13 17:30 | disposition home or self-care (01) ==
LOC: MW.ED 15:03
DX: Z11.3 Encounter for screening for infections with a predominantly sexual mode of transmission (principal); F41.9 Anxiety disorder, unspecified; Z79.899 Other long term (current) drug therapy
CPT/HCPCS: 81003; 87480; 87491; 87510; 87591; 87660; 96372; 99283; A9270; J0696; J2001; 99282